=== PATIENT | female | born 1980 | race Caucasian/White ===

== ENCOUNTER 2021-04-24 20:32 | Emergency (ER) | payer OTHER ==
[2021-04-24 20:48] VITALS: BP 143/94; PULSE 94; TEMP 98.1; BMI 23.2
== END 2021-04-24 22:19 | disposition home or self-care (01) ==
LOC: JER 20:32 → JERFT 20:32
DX: F41.9 Anxiety disorder, unspecified (principal)
CPT/HCPCS: 71046-TC-FY; 93005; 93010; 99284-25

== ENCOUNTER 2021-04-25 16:53 | Emergency (ER) | payer OTHER ==
[2021-04-25 17:01] VITALS: BP 127/85; PULSE 97; TEMP 98.4; BMI 23.2
[2021-04-25] MEDS ORDERED: SODIUM CHLORIDE 1,000 ML IV STA (18:19)
[2021-04-25] MEDS ORDERED: ALPRAZolam 1 MG TABLET PO PRN (18:20)
[2021-04-25] MEDS ORDERED: ALPRAZolam 0.25 MG TABLET ONE (18:32)
[2021-04-25 19:07] LABS: HEMATOCRIT 48.1 % (32.4-45.2); MCH 28.6 pg (25.7-33.7); MCHC 33.2 g/dl (32.0-36.0); MEAN CELL VOLUME 86.3 fl (80-96); MEAN PLT VOLUME 7.4 fl (7.5-11.1); PLATELET COUNT 365 K/MM3 (134-434); RBC 5.58 M/mm3 (3.60-5.2); RDW 12.8 % (11.6-15.6); WHITE BLOOD COUNT 10.2 K/mm3 (4.0-10.0)
[2021-04-25 19:22] LABS: CHLORIDE 105 mmol/L (98-107); SODIUM 140 mmol/L (136-145)
[2021-04-25 19:24] LABS: CALCIUM 9.3 mg/dL (8.5-10.1)
[2021-04-25 19:25] LABS: ALBUMIN 4.4 g/dl (3.4-5.0); ANION GAP 10 MMOL/L (8-16); BLOOD UREA NITROGEN 11.6 mg/dL (7-18); CO2 25 mmol/L (21-32); GLUCOSE,RANDOM 83 mg/dL (74-106)
[2021-04-25 19:28] LABS: CREATININE 0.7 mg/dL (0.55-1.3); SGOT/AST 9 U/L (15-37); SGPT/ALT 19 U/L (13-61)
[2021-04-25 19:29] LABS: BILIRUBIN,TOTAL 0.7 mg/dL (0.2-1); TOT PROT 7.2 g/dl (6.4-8.2)
[2021-04-25 19:31] LABS: ALK PHOS 62 U/L (45-117)
== END 2021-04-25 20:55 | disposition home or self-care (01) ==
LOC: JER 16:53
PROC: 3E0337Z Introduction of Electrolytic and Water Balance Substance into Peripheral Vein, Percutaneous Approach (ICD-10-PCS; principal; 2021-04-25)
DX: F41.9 Anxiety disorder, unspecified (principal)
CPT/HCPCS: 36415; 80053; 84702; 85027; 99284-25

== ENCOUNTER 2022-11-19 10:00 | Emergency (ER) | payer BC, OTHER ==
[2022-11-19 10:11] VITALS: BP 125/85; PULSE 80; RESP 16; TEMP 98.5; BMI 19.8
== END 2022-11-19 10:45 | disposition home or self-care (01) ==
LOC: FER 10:00
DX: J09.X2 Influenza due to identified novel influenza A virus with other respiratory manifestations (principal); R05.1 Acute cough; R09.81 Nasal congestion
CPT/HCPCS: 0241U-QW; 99283-25